=== PATIENT | female | born 1975 | race Caucasian/White ===

== ENCOUNTER 2017-04-13 16:40 | Emergency (ER) | payer OTHER ==
[~2017-04-13] VITALS: Ht 162.6 cm; Wt 90.0 kg
[~2017-04-13 16:40] MED LIST: CLIN300C5 PO; EFIN1SOL TOPICAL
[2017-04-13 16:58] VITALS: BP 128/73; PULSE 110; RESP 18; TEMP 100.1; O2SAT 96
--- NOTE | 2017-04-13 18:05 | PD ---
HPI Chief Complaint: Cold / Flu Symptoms Time Seen by Provider: 17:51 Travel History International Travel<30 days: No Contact w/Intl Traveler<30days: No Traveled to known affect area: No History of Present Illness HPI This patient complains of cough and congestion and sore throat and fever. Symptoms severity is moderate. Duration 2 days. No alleviating factors PFSH Past Medical History Diminished Hearing: No Tetanus Vaccination: > 5 Years Influenza Vaccination: No ?: Not LMP: CURRENT : 1 Para: 0 Past Surgical History Section: Yes Social History Alcohol Use: No Tobacco Use: Yes (10 cig/day) Substance Use: No Allergies-Medications (Allergen,Severity, Reaction): Coded Allergies: Sulfa (Sulfonamide Antibiotics) (Unverified Allergy, Unknown, UNKNOWN REACTION, 10/31/16) Reported Meds & Prescriptions Reported Meds & Active Scripts Active Review of Systems General / Constitutional: Positive: Fever Respiratory: Positive: Cough Gastrointestinal: No: Vomiting, Diarrhea Physical Exam Narrative RESPIRATORY: Respiratory effort unlabored, no retractions or use of accessory muscles. Breath sounds are clear and symmetric. Throat clear NECK: Symmetrical appearance, midline trachea. No mass or crepitus. Thyroid without enlargement, tenderness, or mass. GASTROINTESTINAL: Abdomen soft, non-tender, nondistended. Positive bowel sounds. No hepato-splenomegaly, or palpable masses. No guarding. Data Data Last Documented VS Vital Signs Date Time Temp Pulse Resp B/P (MAP) Pulse Ox O2 Delivery O2 Flow Rate FiO2 04/13/17 16:58 100.1 110 18 128/73 (91) 96 Orders Orders Influenzae A/B Antigen (04/13/17 17:04) MDM Medical Decision Making Medical Screen Exam Complete: Yes Emergency Medical Condition: Yes Medical Record Reviewed: Yes Differential Diagnosis Flu syndrome, bronchitis, URI, pneumonia Narrative Course I have reviewed the patient's electronic medical record. This dictation is consistent with acute viral syndrome. Influenza swab is negative. No indication for antibiotic therapy Does not look septic or toxic No meningeal signs Diagnosis Primary Impression: Acute viral syndrome Additional Instructions: The patient was advised to follow up with their physician and return if they worsen. Med/Other Pt SpecificInfo: Other Disposition: 01 DISCHARGE HOME Condition: Stable Jm Edwards MD Apr 13, 2017 18:05
== END 2017-04-13 18:18 | disposition home or self-care (01) ==
LOC: PHED 16:40 → PHEFT 18:18
DX: B34.9 Viral infection, unspecified (principal); F17.210 Nicotine dependence, cigarettes, uncomplicated; Z88.2 Allergy status to sulfonamides
CPT/HCPCS: 87804; 99283